=== PATIENT | male | born 2005 | race Two or more races ===

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

== ENCOUNTER 2023-07-17 21:29 | Emergency (ER) | payer MEDICAID ==
[~2023-07-17] VITALS: Ht 170.2 cm; Wt 86.9 kg
[2023-07-17 21:44] VITALS: BP 116/61; PULSE 71; RESP 18; TEMP 99.9
[2023-07-18 00:30] VITALS: O2SAT 100
== END 2023-07-18 00:35 | disposition home or self-care (01) ==
LOC: ER 21:31
DX: G43.109 Migraine with aura, not intractable, without status migrainosus (principal)
CPT/HCPCS: 70450

== ENCOUNTER 2024-03-12 23:06 | Emergency (ER) | payer MEDICAID ==
[~2024-03-12] VITALS: Ht 170.2 cm; Wt 86.3 kg
[2024-03-12] MEDS: FAMOTIDINE (10MG/ML) 2ML VL IV ONE (23:41)
[2024-03-12] MEDS: DexAMETHasone SOD PHOS 10MG/1ML VIAL INJ IV ONE (23:41)
[2024-03-12] MEDS: diphenhdrAMINE HCL 50 MG/1 ML VL IV ONE (23:42)
[2024-03-13] MEDS: ALBUTEROL SULF 2.5 MG/0.5ML(0.5%) NEB SOLN NEB ONE (01:33)
[2024-03-13] MEDS: BUDESONIDE (INHALATION) 0.5 MG/2 ML NEB NEB ONE (01:34)
[2024-03-13] MEDS ORDERED: DEX4T PO (01:54)
[2024-03-13] MEDS ORDERED: LORA-622 PO (01:54)
[2024-03-13] MEDS ORDERED: FAMO20TA10 PO (01:54)
[2024-03-13 03:02] VITALS: BP 122/57; PULSE 88; RESP 16; TEMP 98.3; O2SAT 99
== END 2024-03-13 02:08 | disposition home or self-care (01) ==
LOC: ER 23:06
DX: L50.0 Allergic urticaria (principal)
CPT/HCPCS: 94640; 96374; 96375; 99284; J1100; J1200; J3490